=== PATIENT | male | born 1985 | race Caucasian/White ===

== ENCOUNTER 2019-01-07 08:25 | Observation (INO) | payer OTHER ==
[~2019-01-07 08:25] MED LIST: CEFAZOLIN 1 GM INJ; METOPROLOL 5 MG INJ; SEVOFLURANE 15 MIN
[2019-01-07] MEDS ORDERED: HYDROCODONE/APAP (10/325) TAB PO (10:00)
[2019-01-07] MEDS ORDERED: BISACODYL 10 MG SUPP PR (10:00)
[2019-01-07] MEDS ORDERED: DIPHENHYDRAMINE 25 MG CAP PO (10:00)
[2019-01-07] MEDS ORDERED: ACETAMINOPHEN 325 MG TAB PO (10:00)
[2019-01-07] MEDS ORDERED: AL HYDROX/MG HYDROX/SIMETH 30 ML CUP PO (10:00)
[2019-01-07] MEDS ORDERED: NALOXONE (0.4 MG/ML) INJ IV (10:00)
[2019-01-07] MEDS ORDERED: ONDANSETRON 4 MG INJ IV (10:00)
[2019-01-07] MEDS ORDERED: DIPHENHYDRAMINE 50 MG INJ IV ×2 (10:00→12:00)
[2019-01-07] MEDS ORDERED: METHOCARBAMOL 750 MG TAB PO (10:00)
[2019-01-07] MEDS ORDERED: METOCLOPRAMIDE 10 MG INJ (10:13)
[2019-01-07] MEDS ORDERED: ONDANSETRON 4 MG INJ (10:13)
[2019-01-07] MEDS ORDERED: SUCCINYLCHOLINE CHLORIDE 100 MG/5 ML SYG IV (10:13)
[2019-01-07] MEDS ORDERED: MIDAZOLAM 1 MG/ML 2 ML INJ (10:13)
[2019-01-07] MEDS ORDERED: PROPOFOL 20 ML (10:13)
[2019-01-07] MEDS ORDERED: ROCURONIUM 50 MG INJ ×2 (10:13→11:25)
[2019-01-07] MEDS ORDERED: FENTAnyl 50 MCG/ML VIAL ×2 (10:13→12:20)
[2019-01-07] MEDS ORDERED: DEXAMETHASONE 4 MG/ML 5 ML INJ (10:54)
[2019-01-07] MEDS: SURGIFOAM POWDER 1 GM KIT (11:08)
[2019-01-07] MEDS: THROMBIN 5000 UNIT VIAL (11:08)
[2019-01-07] MEDS: BUPIVACAINE 0.5%/EPI (SDV) 30 ML INJ (11:08)
[2019-01-07] MEDS: POLYMYXIN/BACITRACIN 1L IRRIG (11:08)
[2019-01-07] MEDS ORDERED: METOPROLOL 5 MG INJ (11:25)
[2019-01-07] MEDS ORDERED: THROMBIN 5000 UNIT VIAL (11:48)
[2019-01-07] MEDS ORDERED: GELATIN SIZE 100 SPONGE (11:48)
[2019-01-07] MEDS ORDERED: morphine (1 MG/ML) 10ML SYRINGE IV (12:00)
[2019-01-07] MEDS ORDERED: hydrALAzine 20 MG INJ IV (12:00)
[2019-01-07] MEDS ORDERED: PROCHLORPERAZINE 10 MG INJ IV (12:00)
[2019-01-07] MEDS ORDERED: LABETALOL HCL 20MG INJ IV (12:00)
[2019-01-07] MEDS ORDERED: METOCLOPRAMIDE 10 MG INJ IV (12:00)
[2019-01-07] MEDS ORDERED: HALOPERIDOL 5 MG INJ IV (12:00)
[2019-01-07] MEDS ORDERED: ALBUTEROL 0.083% (NEB) 2.5 MG/3 ML AMP HHN (12:00)
[2019-01-07] MEDS ORDERED: LORAZEPAM 2 MG INJ IV (12:00)
[2019-01-07] MEDS ORDERED: LIDOCAINE 100 MG SYRINGE (13:54)
[2019-01-07] MEDS: ONDANSETRON 4 MG INJ IV (14:37)
[2019-01-07] MEDS: MEPERIDINE 25 MG INJ IV (14:37)
[2019-01-07] MEDS: CEFAZOLIN 1 GM/50 ML (PMX) 50 ML IVPB ×2 (14:38→21:18)
[2019-01-07] MEDS: HYDROmorphONE 1 MG/5 ML IV SYRINGE IV ×6 (14:45→19:06)
[2019-01-07] MEDS: FENTAnyl 50 MCG/ML VIAL IV ×4 (15:40→17:44)
[2019-01-07] MEDS: OXYCODONE/ACETAMINOPHEN (5/325) TAB PO (17:44)
[2019-01-07] MEDS ORDERED: HYDROmorphONE 1 MG/5 ML IV SYRINGE IV (18:11)
[2019-01-07] MEDS: D5W-0.45 NACL + KCL 20 MEQ 1,000 ML IV ×2 (19:54→21:17)
[2019-01-07] MEDS: DOCUSATE SODIUM 100 MG CAP PO (21:17)
[2019-01-07] MEDS: GABAPENTIN 300 MG CAP PO (21:18)
[2019-01-07] MEDS: HYDROCODONE/APAP (10/325) TAB PO (22:15)
[2019-01-08] MEDS: HYDROmorphONE 0.5 MG/0.5 ML SYG IV ×4 (03:36→20:15)
[2019-01-08] MEDS: CEPASTAT LOZENGE MT (03:36)
[2019-01-08] MEDS: CEFAZOLIN 1 GM/50 ML (PMX) 50 ML IVPB (05:18)
[2019-01-08] MEDS: D5W-0.45 NACL + KCL 20 MEQ 1,000 ML IV ×2 (05:21→15:54)
[2019-01-08 05:24] LABS: ADD MAN DIFF? NO
[2019-01-08 05:27] LABS: WHITE BLOOD COUNT 10.8 10^3/ul (4.8-10.8)
[2019-01-08 05:27] LABS: BASOPHIL # 0.1 10^3/ul (0.0-0.1); BASOPHILS % 0.5 % (0.0-2.0); EOSINOPHILS # 0.1 10^3/ul (0.0-0.5); EOSINOPHILS % 0.6 % (0.0-7.0); HEMATOCRIT 36.8 % (42.0-52.0); HEMOGLOBIN 12.6 g/dl (14.0-18.0); LYMPHOCYTES # 3.4 10^3/ul (0.8-2.9); LYMPHOCYTES % 31.9 % (15.0-51.0); MEAN CORPUSCULAR HEMOGLOBIN 29.9 pg (29.0-33.0); MEAN CORPUSCULAR HGB CONC 34.2 g/dl (32.0-37.0); MEAN CORPUSCULAR VOLUME 87.2 fl (82.0-101.0); MEAN PLATELET VOLUME 9.5 fl (7.4-10.4); MONOCYTE # 0.8 10^3/ul (0.3-0.9); MONOCYTES % 7.8 % (0.0-11.0); NEUTROPHIL # 6.4 10^3/ul (1.6-7.5); PLATELET COUNT 270 10^3/UL (140-415); RED BLOOD COUNT 4.22 10^6/ul (4.70-6.10); RED CELL DISTRIBUTION WIDTH 12.3 % (11.5-14.5)
[2019-01-08 05:45] LABS: ANION GAP 13 (5-13); BLOOD UREA NITROGEN 4 mg/dl (7-20); CARBON DIOXIDE 27 mmol/L (21-31); CHLORIDE 101 mmol/L (97-110); Estimated GFR > 60 mL/min (>60); GLUCOSE 97 mg/dl (70-220); MAGNESIUM 1.7 mg/dl (1.7-2.5); POTASSIUM 3.5 mmol/L (3.5-5.1); SODIUM 141 mmol/L (135-144)
[2019-01-08] MEDS: HYDROCODONE/APAP (10/325) TAB PO ×3 (06:07→17:24)
[2019-01-08] MEDS: LAMOTRIGINE 100 MG TAB PO (08:11)
[2019-01-08] MEDS: DOCUSATE SODIUM 100 MG CAP PO ×2 (08:11→20:15)
[2019-01-08] MEDS: GABAPENTIN 300 MG CAP PO ×3 (08:12→20:15)
== END 2019-01-08 22:50 | disposition home or self-care (01) ==
LOC: SDS 08:25 → REC 09:55 → MS1 20:09
DX: M50.123 Cervical disc disorder at C6-C7 level with radiculopathy (principal); G89.4 Chronic pain syndrome; F31.9 Bipolar disorder, unspecified; J45.909 Unspecified asthma, uncomplicated; F12.90 Cannabis use, unspecified, uncomplicated; R94.31 Abnormal electrocardiogram [ECG] [EKG]
CPT/HCPCS: 22856; 72050; 80048; 83735; 85025; 88304; 93005; 97110; 97116; 97161; 97530; 99217